=== PATIENT | female | born 1980 | race African-American/Black ===

== ENCOUNTER 2017-08-11 22:15 | Inpatient (IN) | payer OTHER ==
--- NOTE | 2017-08-11 22:34 | PDOC ---
Rapid Medical Evaluation Time Seen by Provider: 08/11/17 22:29 Medical Evaluation: Allergies Allergy/AdvReac Type Severity Reaction Status Date / Time No Known Allergies Allergy Verified 07/22/13 18:46 08/11/17 22:31 I have performed a brief in-person evaluation of this patient. The patient presents with a chief complaint of:36 yo c/o upper abd pain x3d w/o f/c, n/v/d LMP: 08/01/2017 Pertinent physical exam findings: L/S ctab Abd soft, pain to epigastric I have ordered the following: cbc/ cmp/amylase/lipase, ua, upreg The patient will proceed to the ED for further evaluation.
[2017-08-11 22:59] LABS: URINE APPEARANCE SLCLOUDY; URINE BILIRUBIN NEGATIVE (NEGATIVE); URINE BLOOD NEGATIVE (NEGATIVE); URINE COLOR YELLOW; URINE GLUCOSE (UA) 3+ (NEGATIVE); URINE KETONE TRACE (NEGATIVE); URINE NITRITE NEGATIVE (NEGATIVE); URINE UROBILINOGEN NEGATIVE mg/dL (0.2-1.0)
[2017-08-11 23:00] LABS: URINE PROTEIN 3+ (NEGATIVE)
[2017-08-11 23:02] LABS: URINE HYALINE CAST 2 /lpf; URINE MUCUS RARE; URINE RBC 7; URINE WBC 4
--- NOTE | 2017-08-11 23:54 | PDOC ---
History of Present Illness - General Chief Complaint: Pain Stated Complaint: STOMACH PAIN Time Seen by Provider: 08/11/17 22:29 - History of Present Illness Initial Comments: 08/11/17 23:50 CHIEF COMPLAINT: abd pain HISTORY OF PRESENT ILLNESS: 36 yo F morbidly obese F presents to ED with abdominal pain x 3 days. Patient denies fever, nausea, vomiting, diarrhea. She denies any dysuria, hematuria, or urinary frequency. Last bowel movement was today and "was normal." LMP was "last week, just ended two days ago." PAST MEDICAL HISTORY: Denies past medical history FAMILY HISTORY: Denies SOCIAL HISTORY: Denies tobacco, alcohol, illicit drug use. SURGICAL HISTORY: Denies ALLERGIES: No known drug allergies REVIEW OF SYSTEMS General/Constitutional: Denies fever or chills. Denies weakness, weight change. HEENT: Denies change in vision. Denies ear pain or discharge. Denies sore throat. Cardiovascular: Denies chest pain or shortness of breath. Respiratory: Denies cough, wheezing, or hemoptysis. Gastrointestinal: Abdominal pain "on the sides, and goes down the middle, like a cramping pain." Denies nausea, vomiting, diarrhea or constipation. Denies rectal bleeding. Genitourinary: Denies dysuria, frequency, or change in urination. Musculoskeletal: Denies joint or muscle swelling or pain. Denies neck or back pain. Skin and breasts: Denies rash or easy bruising. PHYSICAL EXAM General Appearance: Well-appearing, appropriately dressed. No apparent distress. HEENT: EOMI, PERRLA. No conjunctival pallor. No photophobia, scleral icterus. Respiratory/Chest: Lungs CTAB. Cardiovascular: RRR. S1, S2. Gastrointestinal/Abdominal: RUQ and epigastric tenderness. Normal bowel sounds. Abdomen soft, non-distended. No tenderness or rebound tenderness. No organomegaly, pulsatile mass, guarding, hernia, hepatomegaly, splenomegaly. Musculoskeletal/Extremities: Normal inspection. FROM of all extremities, normal capillary refill. Pelvis Stable. No CVA tenderness. No tenderness to extremities, pedal edema, swelling, erythema or deformity. Integumentary: Appropriate color, dry, warm. No cyanosis, erythema, jaundice or rash Neurologic: hospice administrator II-XII intact. Fully oriented, alert. Appropriate mood/affect. Motor strength 5/5. No appreciable EOM palsy, facial droop or sensory deficit. 08/12/17 00:41 Past History - Past Medical History Allergies/Adverse Reactions: Allergies Allergy/AdvReac Type Severity Reaction Status Date / Time No Known Allergies Allergy Verified 08/12/17 04:04 Home Medications: Ambulatory Orders NK [No Known Home Medication] 08/12/17 - Immunization History Td Vaccination: Yes Immunization Up to Date: Yes - Suicide/Smoking/Psychosocial Hx Smoking Status: Yes Smoking History: Current some day smoker Years of Tobacco Use: 5 Have you smoked in the past 12 months: Yes Number of Cigarettes Smoked Daily: 10 Cigars Per Day: 0 Information on smoking cessation initiated: No Hx Alcohol Use: No Drug/Substance Use Hx: No *Physical Exam - Vital Signs Last Vital Signs Temp Pulse Resp BP Pulse Ox 98.4 F 90 20 140/80 99 08/11/17 22:34 08/11/17 22:34 08/11/17 22:34 08/11/17 22:34 08/11/17 22:34 ED Treatment Course - LABORATORY CBC & Chemistry Diagram: 08/12/17 07:00 08/12/17 07:00 - ADDITIONAL ORDERS Additional order review: Laboratory Results 08/11/17 22:50 Urine Color Yellow Urine Appearance Slcloudy Urine pH 7.0 Ur Specific [place] 1.029 Urine Protein 3+ H Urine Glucose (UA) 3+ H Urine Ketones Trace H Urine Blood Negative Urine Nitrite Negative Urine Bilirubin Negative Urine Urobilinogen Negative Urine WBC (Auto) 4 Urine RBC (Auto) 7 Ur Epithelial Cells Few Hyaline Casts 2 Urine Mucus Rare Urine HCG, Qual Negative Medical Decision Making - Medical Decision Making 08/12/17 00:45 36 yo F morbidly obese F presents to ED with abdominal pain x 3 days. -CBC, CMP, lipase/amylase -UA, UCx, Upreg 08/12/17 03:04 Lipase 1400s, CT ordered eval pancreatitis. CT results: Possible very mild pancreatitis. Read by: Rob Robles MD. Patient's PCP is Gregory Hdez. Discussed case with attending MD Wright, will admit to hospitalist Case discussed with admitting hospitalist MD Hanson and resident MD Tolentino, who accept patient to inpatient services. *DC/Admit/Observation/Transfer Diagnosis at time of Disposition: Pancreatitis Qualifiers: Chronicity: acute Pancreatitis type: unspecified pancreatitis type Acute pancreatitis complication: unspecified Qualified Code(s): K85.90 - Acute pancreatitis without necrosis or infection, unspecified - Discharge Dispostion Admit: Yes - Referrals - Patient Instructions - Post Discharge Activity
[2017-08-12 00:53] LABS: BASOPHIL 1.1 % (0-2.0); EOSINOPHIL 1.3 % (0-4.5); MCHC 33.4 g/dl (32.0-36.0); MEAN CELL VOLUME 86.8 fl (80-96); MEAN PLT VOLUME 9.7 fl (7.5-11.1); NEUTROPHILS 57.9 % (42.8-82.8); PLATELET COUNT 266 K/MM3 (134-434); WHITE BLOOD COUNT 8.8 K/mm3 (4.0-10.0)
[2017-08-12 01:24] LABS: ALBUMIN 3.1 g/dl (3.4-5.0); AMYLASE 133 U/L (25-115); ANION GAP 11 (8-16); CALCIUM 8.7 mg/dL (8.5-10.1); CO2 25 mmol/L (21-32); CREATININE 0.7 mg/dL (0.55-1.02); GLUCOSE,RANDOM 281 mg/dL (74-106); SGOT/AST 6 U/L (15-37); SGPT/ALT 20 U/L (12-78)
[2017-08-12 01:26] LABS: ALK PHOS 140 U/L (45-117); BILIRUBIN,TOTAL 0.5 mg/dL (0.2-1.0)
[2017-08-12] MEDS ORDERED: KETOROLAC TROMETHAMINE 30 MG/1 ML VIAL IVPUSH ONE (01:28)
[2017-08-12] MEDS ORDERED: SODIUM CHLORIDE 0.9% 1000 ML INFUS.BAG IV ONE (01:43)
--- NOTE | 2017-08-12 03:39 | PN ---
Teaching Attending Note Name of Resident: Lauren Tolentino ATTENDING PHYSICIAN STATEMENT I saw and evaluated the patient. I reviewed the resident's note and discussed the case with the resident. I agree with the resident's findings and plan as documented. SUBJECTIVE: 36 Morbidly obese F with no pmhx. who presents with 3 days of abdominal pain. Pain is ksenia-epigastric. No nausea, vomiting, or diarrhea. No chest pain or pressure. States she does not drink etoh. OBJECTIVE: Physical: VS: Vital Signs Period Temp Pulse Resp BP Sys/[place] Pulse Ox Last 24 Hr 98.4 F 90 20 140/80 99 GEN:NAD, resting in bed, able to speak full sentences HEENT: NCAT, PERRL, throat without erythema or exudates CARD: RRR S1, S2 RESP: CTAB ABD: BSx4, NTD to palpation EXT: - C/C/E CBC,CMP WBC 8.8 K/mm3 (4.0-10.0) 08/12/17 00:33 RBC 5.39 M/mm3 (3.60-5.2) H 08/12/17 00:33 Hgb 15.6 GM/dL (10.7-15.3) H 08/12/17 00:33 Hct 46.8 % (32.4-45.2) H 08/12/17 00:33 MCV 86.8 fl (80-96) 08/12/17 00:33 MCH 29.0 pg (25.7-33.7) 08/12/17 00:33 MCHC 33.4 g/dl (32.0-36.0) 08/12/17 00:33 RDW 14.0 % (11.6-15.6) 08/12/17 00:33 Plt Count 266 K/MM3 (134-434) 08/12/17 00:33 MPV 9.7 fl (7.5-11.1) 08/12/17 00:33 Neutrophils % 57.9 % (42.8-82.8) 08/12/17 00:33 Lymphocytes % 32.9 % (8-40) 08/12/17 00:33 Monocytes % 6.8 % (3.8-10.2) 08/12/17 00:33 Eosinophils % 1.3 % (0-4.5) 08/12/17 00:33 Basophils % 1.1 % (0-2.0) 08/12/17 00:33 Sodium 135 mmol/L (136-145) L 08/12/17 00:33 Potassium 4.4 mmol/L (3.5-5.1) 08/12/17 00:33 Chloride 99 mmol/L (98-107) 08/12/17 00:33 Carbon Dioxide 25 mmol/L (21-32) 08/12/17 00:33 Anion Gap 11 (8-16) 08/12/17 00:33 BUN 7 mg/dL (7-18) 08/12/17 00:33 Creatinine 0.7 mg/dL (0.55-1.02) 08/12/17 00:33 Creat Clearance w eGFR > 60 (>60) 08/12/17 00:33 Random Glucose 281 mg/dL (74-106) H 08/12/17 00:33 Calcium 8.7 mg/dL (8.5-10.1) 08/12/17 00:33 Total Bilirubin 0.5 mg/dL (0.2-1.0) 08/12/17 00:33 AST 6 U/L (15-37) L 08/12/17 00:33 ALT 20 U/L (12-78) 08/12/17 00:33 Alkaline Phosphatase 140 U/L (45-117) H 08/12/17 00:33 Total Protein 7.0 g/dl (6.4-8.2) 08/12/17 00:33 Albumin 3.1 g/dl (3.4-5.0) L 08/12/17 00:33 Total Amylase 133 U/L (25-115) H 08/12/17 00:33 Lipase 1419 U/L (73-393) H 08/12/17 00:33 CXR- Pending EKG- Pending CT ABDOMEN- Mild Pancreatitis ASSESSMENT AND PLAN: 36 Morbidly obese female with no pmhx presents with abdominal pain, found to have acute pancreatitis 1.) Acute Pancreatitis - NPO - IVF - Pain control - Lipid Panel 2.) Hyperglycemia - A1c - RAISS 3.) Dvt Ppx - Heparin [address] in Med-Sx
[2017-08-12] MEDS ORDERED: KETOROLAC TROMETHAMINE 30 MG/1 ML VIAL IVPUSH PRN (03:45)
--- NOTE | 2017-08-12 03:49 | HP ---
CHIEF COMPLAINT: "my stomach hurts" PCP: Dr Gregory Hdez HISTORY OF PRESENT ILLNESS: This is a 36 yo morbidly obese F with no PMH, who presents due to abdominal pain x 3d. Pain is new, started suddenly unrelated to meals, is midline, dull, constant, nonradiating, /, w/o aggravating or alleviating factors. She lost her appetite but denies f/c, n/v, diarrhea, constipation. Last normal BM was yesterday. She reports uri symptoms (cough) before the onset of this pain, for which she took dayquill. She deneis any new medication use, drug use, alcohol consumption, personal history of gall stones or routine abd pain after emals. Her mother had cholelithiasis. In ED pain almost entirely resolves after analgesia. ER course was notable for: (1) labs (2) cxr, abd ct (3) ivf, toradol Recent Travel: denies PAST MEDICAL HISTORY: as above PAST SURGICAL HISTORY: none Social History: lives at home Smoking:pack/day Alcohol:denies Drugs: denies Family History: mother cholelithiasis Allergies No Known Allergies Allergy (Verified 07/22/13 18:46) HOME MEDICATIONS: REVIEW OF SYSTEMS CONSTITUTIONAL: Absent: fever, chills, diaphoresis, generalized weakness HEENT: Absent: rhinorrhea, nasal congestion, throat pain CARDIOVASCULAR: Absent: chest pain, syncope, palpitations, irregular heart rate, lightheadedness , peripheral edema RESPIRATORY: Absent: cough, shortness of breath, dyspnea with exertion, orthopnea, wheezing, stridor, hemoptysis GASTROINTESTINAL: Absent: abdominal distension, nausea, vomiting, diarrhea, constipation, melena, hematochezia GENITOURINARY: Absent: dysuria MUSCULOSKELETAL: Absent: back pain, neck pain SKIN: Absent: rash, itching, pallor HEMATOLOGIC/IMMUNOLOGIC: Absent: easy bleeding, easy bruising, lymphadenopathy, frequent infections ENDOCRINE: Absent: unexplained weight gain, unexplained weight loss NEUROLOGIC: Absent: headache, focal weakness or paresthesias PSYCHIATRIC: Absent: anxiety, depression PHYSICAL EXAMINATION Vital Signs - 24 hr 08/11/17 22:34 Temperature 98.4 F Pulse Rate 90 Respiratory 20 Rate Blood Pressure 140/80 O2 Sat by Pulse 99 Oximetry (%) GENERAL: Awake, alert, and fully oriented, in no acute distress. HEAD: Normal with no signs of trauma. EYES: Pupils equal, round and reactive to light, extraocular movements intact, sclera anicteric, conjunctiva clear. No lid lag. EARS, NOSE, THROAT: Moist mucous membranes. NECK: supple LUNGS: Breath sounds equal, clear to auscultation bilaterally. HEART: Regular rate and rhythm, normal S1 and S2 ABDOMEN: Soft, obese, mildly tender upper quadrants, not distended, normoactive bowel sounds, no guarding, no rebound, no masses. MUSCULOSKELETAL: No CVA tenderness. UPPER EXTREMITIES: 2+ pulses, warm, well-perfused. No peripheral edema. LOWER EXTREMITIES: 2+ pulses, warm, well-perfused. No calf tenderness. No peripheral edema. NEUROLOGICAL: Cranial nerves II-XII grossly intact. Normal speech. PSYCHIATRIC: Cooperative. Good eye contact. Appropriate mood and affect. SKIN: Warm, dry Laboratory Results - last 24 hr 08/11/17 08/12/17 08/12/17 22:50 00:33 00:33 WBC 8.8 RBC 5.39 H Hgb 15.6 H Hct 46.8 H MCV 86.8 MCH 29.0 MCHC 33.4 RDW 14.0 Plt Count 266 MPV 9.7 Neutrophils % 57.9 Lymphocytes % 32.9 Monocytes % 6.8 Eosinophils % 1.3 Basophils % 1.1 Sodium 135 L Potassium 4.4 Chloride 99 Carbon Dioxide 25 Anion Gap 11 BUN 7 Creatinine 0.7 Creat Clearance w eGFR > 60 Random Glucose 281 H Calcium 8.7 Total Bilirubin 0.5 AST 6 L ALT 20 Alkaline Phosphatase 140 H Total Protein 7.0 Albumin 3.1 L Total Amylase 133 H Lipase 1419 H Urine Color Yellow Urine Appearance Slcloudy Urine pH 7.0 Ur Specific [place] 1.029 Urine Protein 3+ H Urine Glucose (UA) 3+ H Urine Ketones Trace H Urine Blood Negative Urine Nitrite Negative Urine Bilirubin Negative Urine Urobilinogen Negative Urine WBC (Auto) 4 Urine RBC (Auto) 7 Ur Epithelial Cells Few Hyaline Casts 2 Urine Mucus Rare Urine HCG, Qual Negative ASSESSMENT/PLAN: This is a 36 yo morbidly obese F with no PMH, who presents due to abdominal pain x 3d. Acute panceratitits -CT abdoment no GB or CBD annormality, possible mild pancreatitis -CXR clear -[place] about 1, mild -unclear etiology -administer LR and toradol -BGM, ISS for reactive hyperglycemia -GI consult -early feeding Morbid obesity -diet and exercise counseling Smoking -cessation counseling Dispo: adm med [place] Problem List - Problem (1) Morbid obesity Code(s): E66.01 - MORBID (SEVERE) OBESITY DUE TO EXCESS CALORIES (2) Smoker Code(s): F17.200 - NICOTINE DEPENDENCE, UNSPECIFIED, UNCOMPLICATED (3) Pancreatitis Code(s): K85.90 - ACUTE PANCREATITIS WITHOUT NECROSIS OR INFECTION, UNSP Qualifiers: Chronicity: acute Pancreatitis type: unspecified pancreatitis type Acute pancreatitis complication: unspecified Qualified Code(s): K85.90 - Acute pancreatitis without necrosis or infection, unspecified Visit type - Emergency Visit Emergency Visit: Yes ED Registration Date: 08/12/17 Care time: The patient presented to the Emergency Department on the above date and was hospitalized for further evaluation of their emergent condition. - New Patient This patient is new to me today: Yes Date on this admission: 08/12/17 - Critical Care Critical Care patient: No
[2017-08-12] MEDS: LACTATED RINGERS SOLUTION 1,000 ML/1,000 ML INFUS.BAG IV SCH ×2 (04:02→22:23)
[2017-08-12 04:20] LABS: CHOLESTEROL 264 mg/dL (50-200)
--- NOTE | 2017-08-12 04:34 | HP ---
CHIEF COMPLAINT: abdominal pain PCP: Gregory Hdez HISTORY OF PRESENT ILLNESS: 36F w/ hx of morbid obesity presenting with 3 days of abdominal pain. She states that the pain is midline and worst in the epigastric region, 10/10 in severity, sharp in quality, radiates to sides, mildly improved with zain seltzer , and constant. She denies ever having abdominal pain like this before, denies alcohol consumption, family hx of any gallbladder, pancreas, or liver diseases, and any daily medication use. She denies fevers, chills, chest pain, SOB, n/v/d/ c, dysuria, urinary frequency, and urgency. Pt reports that her abdominal pain was preceded by several days of a cold characterized by malaise and cough for which she took dayquil with relief of symptoms. She states that she last saw her PCP (Dr. Hdez) one year ago, and she was completely healthy. ER course was notable for: (1) lipase and amylase levels (2) fluids (3) pain control Recent Travel: PAST MEDICAL HISTORY: morbid obesity PAST SURGICAL HISTORY: denies Social History: Smokin pack per 1.5 days x 10 years Alcohol: denies Drugs: denies Family History: mom- kidney and heart disease Allergies No Known Allergies Allergy (Verified 08/12/17 04:04) HOME MEDICATIONS: Home Medications Medication Instructions Recorded NK [No Known Home Medication] 08/12/17 REVIEW OF SYSTEMS CONSTITUTIONAL: Absent: fever, chills, diaphoresis, generalized weakness, loss of appetite, weight change Present: malaise HEENT: Absent: rhinorrhea, nasal congestion, throat pain, throat swelling, difficulty swallowing, mouth swelling, ear pain, eye pain, visual changes CARDIOVASCULAR: Absent: chest pain, syncope, palpitations, irregular heart rate, lightheadedness , peripheral edema RESPIRATORY: Absent: shortness of breath, dyspnea with exertion, orthopnea, wheezing, stridor , hemoptysis Present: cough GASTROINTESTINAL: Absent: abdominal distension, nausea, vomiting, diarrhea, constipation, melena, hematochezia Present: abdominal pain GENITOURINARY: Absent: dysuria, frequency, urgency, hesitancy, hematuria, flank pain, genital pain MUSCULOSKELETAL: Absent: myalgia, arthralgia, joint swelling, back pain, neck pain SKIN: Absent: rash, itching, pallor HEMATOLOGIC/IMMUNOLOGIC: Absent: easy bleeding, easy bruising, lymphadenopathy, frequent infections ENDOCRINE: Absent: unexplained weight gain, unexplained weight loss, heat intolerance, cold intolerance NEUROLOGIC: Absent: headache, focal weakness or paresthesias, dizziness, unsteady gait, seizure, mental status changes, bladder or bowel incontinence PSYCHIATRIC: Absent: anxiety, depression, suicidal or homicidal ideation, hallucinations. PHYSICAL EXAMINATION Vital Signs - 24 hr 08/11/17 22:34 Temperature 98.4 F Pulse Rate 90 Respiratory 20 Rate Blood Pressure 140/80 O2 Sat by Pulse 99 Oximetry (%) GENERAL: morbidly obese middle aged lady, awake, alert, and fully oriented, in no acute distress. HEAD: Normal with no signs of trauma. EYES: Pupils equal, round and reactive to light, extraocular movements intact, sclera anicteric, conjunctiva clear. No lid lag. EARS, NOSE, THROAT: Ears normal, nares patent, oropharynx clear without exudates. Moist mucous membranes. NECK: Normal range of motion, supple without lymphadenopathy, JVD, or masses. LUNGS: Breath sounds equal, clear to auscultation bilaterally. No wheezes, and no crackles. No accessory muscle use. HEART: Regular rate and rhythm, normal S1 and S2 without murmur, rub or gallop. ABDOMEN: Soft, mildly tender in LUQ and epigastric regions, not distended, normoactive bowel sounds, no guarding, no rebound, no masses. No hepatomegaly or splenomegaly. MUSCULOSKELETAL: Normal range of motion at all joints. No bony deformities or tenderness. No CVA tenderness. UPPER EXTREMITIES: 2+ pulses, warm, well-perfused. No cyanosis. No clubbing. No peripheral edema. LOWER EXTREMITIES: 2+ pulses, warm, well-perfused. No calf tenderness. No peripheral edema. NEUROLOGICAL: Cranial nerves II-XII intact. Normal speech. Normal gait. PSYCHIATRIC: Cooperative. Good eye contact. Appropriate mood and affect. SKIN: Warm, dry, normal turgor, no rashes or lesions noted, normal capillary refill. Laboratory Results - last 24 hr 08/11/17 08/12/17 08/12/17 22:50 00:33 00:33 WBC 8.8 RBC 5.39 H Hgb 15.6 H Hct 46.8 H MCV 86.8 MCH 29.0 MCHC 33.4 RDW 14.0 Plt Count 266 MPV 9.7 Neutrophils % 57.9 Lymphocytes % 32.9 Monocytes % 6.8 Eosinophils % 1.3 Basophils % 1.1 Sodium 135 L Potassium 4.4 Chloride 99 Carbon Dioxide 25 Anion Gap 11 BUN 7 Creatinine 0.7 Creat Clearance w eGFR > 60 Random Glucose 281 H Calcium 8.7 Total Bilirubin 0.5 AST 6 L ALT 20 Alkaline Phosphatase 140 H Total Protein 7.0 Albumin 3.1 L Total Amylase 133 H Lipase 1419 H Urine Color Yellow Urine Appearance Slcloudy Urine pH 7.0 Ur Specific [place] 1.029 Urine Protein 3+ H Urine Glucose (UA) 3+ H Urine Ketones Trace H Urine Blood Negative Urine Nitrite Negative Urine Bilirubin Negative Urine Urobilinogen Negative Urine WBC (Auto) 4 Urine RBC (Auto) 7 Ur Epithelial Cells Few Hyaline Casts 2 Urine Mucus Rare Urine HCG, Qual Negative CT abdomen: Imaging external relations director findings There may be minimal inflammation adjacent to pancreatic head, suggesting mild pancreatitis. No secondary complications. Normal liver and gallbladder. ASSESSMENT/PLAN: 36F w/ hx of morbid obesity presenting with acute epigastric abdominal pain, found to have exam notable for epigastric and LUQ tenderness, elevated lipase and amylase, and CT findings suggestive of mild pancreatitis. #epigastric abdominal pain -2/2 acute pancreatitis -lipase of 1419, amylase of 133 -CT abdomen: There may be minimal inflammation adjacent to pancreatic head, suggesting mild pancreatitis. No secondary complications. Normal liver and gallbladder. -etiology unclear at this point. no gallstones or gallbladder changes found on CT. calcium normal. no alcohol consumption. no family hx. no regular medication use. triglycerides mildly increased at 211, not high enough to cause pancreatitis. -NPO, fluids with LR @ 150cc/hr, pain control with toradol -f/u EKG and CXR #elevated ALP -ALP of 140 -possibly 2/2 pancreatitis vs. gallstone vs. low vitamin D -trend #HLD -LDL of 197 -start statin once tolerating po #morbid obesity -farmworker poultry consulted, f/u recs #hyperglycemia -glucose of 281 on BMP, UA with 3+ glucose, protein, and trace ketones -f/u a1c -ISS, BGM BIDAC #elevated BP -BP of 140/80 -no prior dx of HTN -monitor -f/u outpt #FEN/ppx -LR -electrolytes wnl -NPO for now -no GI ppx -SCDs and lovenox #Dispo- admit to med-surg -Keny Garcia MD PGY1 Visit type - Emergency Visit Emergency Visit: Yes ED Registration Date: 08/12/17 Care time: The patient presented to the Emergency Department on the above date and was hospitalized for further evaluation of their emergent condition. - New Patient This patient is new to me today: Yes Date on this admission: 08/12/17 - Critical Care Critical Care patient: No
[2017-08-12 04:57] VITALS: BMI 41.6
[2017-08-12] MEDS ORDERED: INSULIN (NOVOLOG) ASPART 100 UNITS/ML 10ML VIAL ONE (05:45)
[2017-08-12] MEDS: INSULIN SLIDING SCALE (NOVOLOG) 1 VIAL SQ SCH ×4 (05:46→21:27)
[2017-08-12 08:22] LABS: BASOPHIL 0.6 % (0-2.0); EOSINOPHIL 1.8 % (0-4.5); MCH 28.9 pg (25.7-33.7); MCHC 32.8 g/dl (32.0-36.0); MEAN CELL VOLUME 88.3 fl (80-96); MEAN PLT VOLUME 9.9 fl (7.5-11.1); NEUTROPHILS 54.2 % (42.8-82.8); PLATELET COUNT 278 K/MM3 (134-434); WHITE BLOOD COUNT 8.2 K/mm3 (4.0-10.0)
[2017-08-12] MEDS: ENOXAPARIN NA (PORCINE) 40 MG/0.4 ML DISP.SYRIN SQ SCH (09:41)
[2017-08-12 09:48] LABS: ALBUMIN 3.3 g/dl (3.4-5.0); ANION GAP 11 (8-16); CALCIUM 8.9 mg/dL (8.5-10.1); CO2 27 mmol/L (21-32); CREATININE 0.8 mg/dL (0.55-1.02); GLUCOSE,RANDOM 217 mg/dL (74-106); SGOT/AST 9 U/L (15-37); SGPT/ALT 21 U/L (12-78)
[2017-08-12 09:50] LABS: ALK PHOS 146 U/L (45-117); BILIRUBIN,TOTAL 0.4 mg/dL (0.2-1.0); TOT PROT 7.2 g/dl (6.4-8.2)
--- NOTE | 2017-08-12 10:49 | EKG ---
Test Reason : Blood Pressure : / mmHG Vent. Rate : 075 BPM Atrial Rate : 075 BPM P-R Int : 138 ms QRS Dur : 070 ms QT Int : 394 ms P-R-T Axes : 038 045 050 degrees QTc Int : 439 ms NORMAL SINUS RHYTHM BASELINE ARTIFACT POSSIBLE LEFT ATRIAL ENLARGEMENT NONSPECIFIC ST ABNORMALITY ABNORMAL ECG NO PREVIOUS ECGS AVAILABLE REPEAT EKG IF CLINICALLY INDICATED Confirmed by RAND THOMAS MD ([id number]) on 08/12/2017 10:48:40 AM Referred By: Confirmed By:RAND THOMAS MD
[2017-08-12 12:21] LABS: URINE LEUK ESTERASE Negative (NEGATIVE)
--- NOTE | 2017-08-12 14:48 | PN ---
Teaching Attending Note Name of Resident: Fredy Sin ATTENDING PHYSICIAN STATEMENT I saw and evaluated the patient. I reviewed the resident's note and discussed the case with the resident. I agree with the resident's findings and plan as documented. SUBJECTIVE:states pain has resolved. requesting to eat. denies any epiosodes in the past, pain on eating fried/fatty foods. Denies CP, SOB, fever, chills, N/V/C /D OBJECTIVE: Last Vital Signs Temp Pulse Resp BP Pulse Ox 98.2 F 66 20 145/89 100 08/12/17 08:00 08/12/17 08:00 08/12/17 08:00 08/12/17 08:00 08/12/17 05:04 General NAD CV S1 S2 RRR no murmur/rub/gallop Lungs CTA B/L no wheezing/rales/rhonchi Abdomen soft NT/ND neg chandler sign no rebound/guarding obese ASSESSMENT AND PLAN: 36yo F wtih PMH obesity presented to the ER with abdominal pain x3 days 1. Acute pancreatitis- concern for gallstone induced. U/s showing dilated CBD 11mm. will advance diet to clear liquid. check MRCP, consider Surg eval to see if cholecystectomy is required this admission 2. New onset DM- A1c 11.3. will need insulin. start levemir 5 untis tonight as will only be on liquids. titrate up to optimize sugars. BGM, iss. dietary eval. injection teaching by RN 3. elevated BP- may be due to pain. if remains elevated will start low dose acei. goal SBP <130 4. Morbid obesity- BMI 41.6. bariatric referral as outpatient 5. DVT ppx- lovenox
--- NOTE | 2017-08-12 15:09 | PN ---
Physical Exam: SUBJECTIVE: Patient seen and examined at bedside. This is a 36 year old female with a past medical history significant for morbid obesity presenting for a 3 day history of epigastric abdominal pain that radiates to her sides. Denies nausea, vomiting , diarrhea. Clinical picture and CT suggestive of acute pancreatitis. Patient was started on LR fluids. Patient was discovered to have diabetes mellitus. Currently patient has no complaints (chest pain, abdominal pain, shortness of breath). OBJECTIVE: Vital Signs Period Temp Pulse Resp BP Sys/[place] Pulse Ox Last 24 Hr 97.9 F-98.4 F 66-90 15-20 128-151/68-89 98-100 GENERAL: The patient is awake, alert, and fully oriented, in no acute distress. HEAD: Normal with no signs of trauma. EYES: PERRL, extraocular movements intact, sclera anicteric, conjunctiva clear. No ptosis. ENT: Ears normal, nares patent, oropharynx clear without exudates, moist mucous membranes. NECK: Trachea midline, full range of motion, supple. LUNGS: Breath sounds equal, clear to auscultation bilaterally, no wheezes, no crackles, no accessory muscle use. HEART: Regular rate and rhythm, S1, S2 without murmur, rub or gallop. ABDOMEN: Soft, obese, nontender, nondistended, normoactive bowel sounds, no guarding, no rebound, no hepatosplenomegaly, no masses. EXTREMITIES: 2+ pulses, warm, well-perfused, no edema. NEUROLOGICAL: Cranial nerves II through XII grossly intact. Normal speech, gait not observed. PSYCH: Normal mood, normal affect. SKIN: Warm, dry, normal turgor, no rashes or lesions noted Laboratory Results - last 24 hr 08/11/17 08/12/17 08/12/17 22:50 00:33 00:33 WBC 8.8 RBC 5.39 H Hgb 15.6 H Hct 46.8 H MCV 86.8 MCH 29.0 MCHC 33.4 RDW 14.0 Plt Count 266 MPV 9.7 Neutrophils % 57.9 Lymphocytes % 32.9 Monocytes % 6.8 Eosinophils % 1.3 Basophils % 1.1 Sodium 135 L Potassium 4.4 Chloride 99 Carbon Dioxide 25 Anion Gap 11 BUN 7 Creatinine 0.7 Creat Clearance w eGFR > 60 POC Glucometer Random Glucose 281 H Hemoglobin A1c % Calcium 8.7 Total Bilirubin 0.5 AST 6 L ALT 20 Alkaline Phosphatase 140 H LD Total Total Protein 7.0 Albumin 3.1 L Triglycerides Cholesterol Total LDL Cholesterol HDL Cholesterol Total Amylase 133 H Lipase 1419 H Urine Color Yellow Urine Appearance Slcloudy Urine pH 7.0 Ur Specific [place] 1.029 Urine Protein 3+ H Urine Glucose (UA) 3+ H Urine Ketones Trace H Urine Blood Negative Urine Nitrite Negative Urine Bilirubin Negative Urine Urobilinogen Negative Ur Leukocyte Esterase Negative Urine WBC (Auto) 4 Urine RBC (Auto) 7 Ur Epithelial Cells Few Hyaline Casts 2 Urine Mucus Rare Urine HCG, Qual Negative 08/12/17 08/12/17 08/12/17 00:40 00:40 05:40 WBC RBC Hgb Hct MCV MCH MCHC RDW Plt Count MPV Neutrophils % Lymphocytes % Monocytes % Eosinophils % Basophils % Sodium Potassium Chloride Carbon Dioxide Anion Gap BUN Creatinine Creat Clearance w eGFR POC Glucometer 256 Random Glucose Hemoglobin A1c % Calcium Total Bilirubin AST ALT Alkaline Phosphatase LD Total 129 Total Protein Albumin Triglycerides 211 H Cholesterol 264 H Total LDL Cholesterol 197 H HDL Cholesterol 33 L Total Amylase Lipase Urine Color Urine Appearance Urine pH Ur Specific [place] Urine Protein Urine Glucose (UA) Urine Ketones Urine Blood Urine Nitrite Urine Bilirubin Urine Urobilinogen Ur Leukocyte Esterase Urine WBC (Auto) Urine RBC (Auto) Ur Epithelial Cells Hyaline Casts Urine Mucus Urine HCG, Qual 08/12/17 08/12/17 08/12/17 07:00 07:00 10:05 WBC 8.2 RBC 5.39 H Hgb 15.6 H Hct 47.6 H MCV 88.3 MCH 28.9 MCHC 32.8 RDW 14.0 Plt Count 278 MPV 9.9 Neutrophils % 54.2 Lymphocytes % 37.2 Monocytes % 6.2 Eosinophils % 1.8 Basophils % 0.6 Sodium 137 Potassium 4.3 Chloride 99 Carbon Dioxide 27 Anion Gap 11 BUN 10 D Creatinine 0.8 Creat Clearance w eGFR > 60 POC Glucometer Random Glucose 217 H D Hemoglobin A1c % 11.3 H Calcium 8.9 Total Bilirubin 0.4 AST 9 L D ALT 21 Alkaline Phosphatase 146 H LD Total Total Protein 7.2 Albumin 3.3 L Triglycerides Cholesterol Total LDL Cholesterol HDL Cholesterol Total Amylase Lipase Urine Color Urine Appearance Urine pH Ur Specific [place] Urine Protein Urine Glucose (UA) Urine Ketones Urine Blood Urine Nitrite Urine Bilirubin Urine Urobilinogen Ur Leukocyte Esterase Urine WBC (Auto) Urine RBC (Auto) Ur Epithelial Cells Hyaline Casts Urine Mucus Urine HCG, Qual Active Medications Generic Name Dose Route Start Last Admin Trade Name Freq PRN Reason Stop Dose Admin Enoxaparin Sodium 40 mg 08/12/17 10:00 08/12/17 09:41 Lovenox - SQ 40 mg DAILY KAYODE Administration Lactated Ringer's 1,000 ml in 1,000 mls @ 150 mls/hr 08/12/17 04:00 08/12/17 04:02 Lactated Ringers Solution IV 08/14/17 10:39 150 mls/hr ASDIR KAYODE Administration Insulin Aspart 1 vial 08/12/17 16:30 Novolog Vial Sliding Scale - SQ ACHS KAYODE Protocol Insulin Detemir 5 units 08/12/17 14:45 Levemir Vial SQ HS KAYODE Ketorolac Tromethamine 30 mg 08/12/17 03:45 Toradol Injection - IVPUSH 08/17/17 03:44 Q8H-IV PRN PAIN Lorazepam 1 mg 08/12/17 14:51 Ativan Injection - IVPUSH 08/12/17 14:[address] abdomen: minimal inflammation adjacent to pancreatic head, normal liver and gallbladder US abdomen: common bile duct measuring 11mm; hepatomegaly and hepatic steatosis ASSESSMENT/PLAN: 36 year old female with a past medical history of morbid obesity is admitted to the hospital for management of acute pancreatitis #Acute Pancreatitis: resolving -lipase on admission was 1419 -common bile duct dilation 11mm -f/u MRCP, 1mg ativan given for anxiety about the test -continue LR @ 150cc/hr -continue toradol 30mg Q8h IV for pain #Diabetes Mellitus: -A1C 11.3 -BG 281 this morning -Levemir 5 Units -insulin sliding scale #Hyperlipidemia -cholesterol 264 -followup full lipid panel -trigs 211, unlikely causing her pancreatitis #Morbid obesity -f/u dietary reccs, NPO for now #Hypertension -blood pressure 151/68 this morning -monitor vitals, no hx of prior hypertensive disease #FEN -Continue LR @ 150/hr -monitor creatitine, potassium, magnesium, phosphorous -NPO until after MRCP, then potentially advance diet #Prophylaxis -Lovenox 40mg subq #Disposition -continue to monitor on med-surg -patient is full code Visit type - Emergency Visit Emergency Visit: No - New Patient This patient is new to me today: Yes Date on this admission: 08/12/17 - Critical Care Critical Care patient: No
[2017-08-12] MEDS: INSULIN DETEMIR 100 UNITS/ML MDV SQ SCH ×2 (17:12→21:27)
[2017-08-12] MEDS ORDERED: LORazepam 2 MG/ML SDV VIAL IVPUSH ONE (17:30)
[2017-08-13] MEDS ORDERED: INSULIN (NOVOLOG) ASPART 100 UNITS/ML 10ML VIAL ONE ×4 (06:41→21:33)
[2017-08-13] MEDS: LACTATED RINGERS SOLUTION 1,000 ML/1,000 ML INFUS.BAG IV SCH (06:42)
[2017-08-13] MEDS: INSULIN SLIDING SCALE (NOVOLOG) 1 VIAL SQ SCH ×4 (06:42→22:03)
--- NOTE | 2017-08-13 07:52 | PN ---
Physical Exam: SUBJECTIVE: Patient seen and examined at bedside. Patient denies any abdominal pain, nausea, vomiting, diarrhea. Patient had MRCP last night. Tolerating clear liquid diet. OBJECTIVE: Vital Signs Period Temp Pulse Resp BP Sys/[place] Pulse Ox Last 24 Hr 98.2 F-98.2 F 66-78 18-20 133-145/78-89 100 GENERAL: The patient is awake, alert, and fully oriented, in no acute distress. HEAD: Normal with no signs of trauma. EYES: PERRL, extraocular movements intact, sclera anicteric, conjunctiva clear. No ptosis. ENT: Ears normal, nares patent, oropharynx clear without exudates, moist mucous membranes. NECK: Trachea midline, full range of motion, supple. LUNGS: Breath sounds equal, clear to auscultation bilaterally, no wheezes, no crackles, no accessory muscle use. HEART: Regular rate and rhythm, S1, S2 without murmur, rub or gallop. ABDOMEN: Soft, obese, nontender, nondistended, normoactive bowel sounds, no guarding, no rebound, no hepatosplenomegaly, no masses. EXTREMITIES: 2+ pulses, warm, well-perfused, no edema. NEUROLOGICAL: Cranial nerves II through XII grossly intact. Normal speech, gait not observed. PSYCH: Normal mood, normal affect. SKIN: Warm, dry, normal turgor, no rashes or lesions noted Laboratory Results - last 24 hr 08/11/17 08/12/17 08/12/17 22:50 07:00 07:00 WBC 8.2 RBC 5.39 H Hgb 15.6 H Hct 47.6 H MCV 88.3 MCH 28.9 MCHC 32.8 RDW 14.0 Plt Count 278 MPV 9.9 Neutrophils % 54.2 Lymphocytes % 37.2 Monocytes % 6.2 Eosinophils % 1.8 Basophils % 0.6 Sodium 137 Potassium 4.3 Chloride 99 Carbon Dioxide 27 Anion Gap 11 BUN 10 D Creatinine 0.8 Creat Clearance w eGFR > 60 POC Glucometer Random Glucose 217 H D Hemoglobin A1c % Calcium 8.9 Total Bilirubin 0.4 AST 9 L D ALT 21 Alkaline Phosphatase 146 H Total Protein 7.2 Albumin 3.3 L Ur Leukocyte Esterase Negative 08/12/17 08/12/17 08/12/17 10:05 17:10 21:26 WBC RBC Hgb Hct MCV MCH MCHC RDW Plt Count MPV Neutrophils % Lymphocytes % Monocytes % Eosinophils % Basophils % Sodium Potassium Chloride Carbon Dioxide Anion Gap BUN Creatinine Creat Clearance w eGFR POC Glucometer 160 188 Random Glucose Hemoglobin A1c % 11.3 H Calcium Total Bilirubin AST ALT Alkaline Phosphatase Total Protein Albumin Ur Leukocyte Esterase 08/13/17 06:37 WBC RBC Hgb Hct MCV MCH MCHC RDW Plt Count MPV Neutrophils % Lymphocytes % Monocytes % Eosinophils % Basophils % Sodium Potassium Chloride Carbon Dioxide Anion Gap BUN Creatinine Creat Clearance w eGFR POC Glucometer 207 Random Glucose Hemoglobin A1c % Calcium Total Bilirubin AST ALT Alkaline Phosphatase Total Protein Albumin Ur Leukocyte Esterase Active Medications Generic Name Dose Route Start Last Admin Trade Name Freq PRN Reason Stop Dose Admin Enoxaparin Sodium 40 mg 08/12/17 10:00 08/12/17 09:41 Lovenox - SQ 40 mg DAILY KAYODE Administration Lactated Ringer's 1,000 ml in 1,000 mls @ 150 mls/hr 08/12/17 04:00 08/13/17 06:42 Lactated Ringers Solution IV 08/14/17 10:39 150 mls/hr ASDIR KAYODE Administration Insulin Aspart 1 vial 08/12/17 16:30 08/13/17 06:42 Novolog Vial Sliding Scale - SQ 2 units ACHS KAYODE Administration Protocol Insulin Detemir 5 units 08/12/17 14:45 08/12/17 21:27 Levemir Vial SQ Not Given HS KAYODE Ketorolac Tromethamine 30 mg 08/12/17 03:45 Toradol Injection - IVPUSH 08/17/17 03:44 Q8H-IV PRN PAIN Imaging CT abdomen: minimal inflammation adjacent to pancreatic head, normal liver and gallbladder US abdomen: common bile duct measuring 11mm; hepatomegaly and hepatic steatosis MRCP: Tiny gallstone with no MRI evidence of cholecystitis. No choledocholithiasis seen. Mild fusiform dilatation of the CHD with upper normal CBD distal to the cystic duct insertion and no evidence of intrahepatic biliary ductal dilatation. This is likely within normal limits vs mild form of choledochal cyst type I. Correlation with clinical history and symptomatology as well as bilirubin level is needed. Fatty infiltration of the liver. Nonspecific segmental atrophy of the pancreatic neck with minimal dilatation of the pancreatic duct in the tail with no focal signal abnormality. Continued follow-up with MRI without and with IV gadolinium is suggested at a 6 month interval to exclude occult neoplasm. ASSESSMENT/PLAN: 36 year old female with a past medical history of morbid obesity is admitted to the hospital for management of acute pancreatitis #Acute Pancreatitis: resolving -lipase on admission was 1419 -common bile duct dilation 11mm -MRCP did not suspect cholecystitis or choledocholithiasis -DC lactated ringers -continue toradol 30mg Q8h IV for pain -tolerating solid food today #Diabetes Mellitus: -A1C 11.3 -Levemir 5 Units -insulin sliding scale #Hyperlipidemia -cholesterol 264 -followup full lipid panel -trigs 211 on admission, unlikely causing pancreatitis #Morbid obesity -f/u dietary recs -clear liquid diabetic diet #Hypertension -blood pressure 135/85 this morning -monitor vitals, no hx of prior hypertensive disease #FEN -D.C. lactated ringers -monitor creatitine, potassium, magnesium, phosphorous -Diabetic clear liquid diet #Prophylaxis -Lovenox 40mg subq #Disposition -continue to monitor on med-surg -can D/C in AM with recommendations for outpatient followup for GI -patient is full code Visit type - Emergency Visit Emergency Visit: No - New Patient This patient is new to me today: No - Critical Care Critical Care patient: No
[2017-08-13 07:57] LABS: MCH 29.2 pg (25.7-33.7); MCHC 33.2 g/dl (32.0-36.0); MEAN CELL VOLUME 87.9 fl (80-96); PLATELET COUNT 244 K/MM3 (134-434); RDW 13.7 % (11.6-15.6); WHITE BLOOD COUNT 5.8 K/mm3 (4.0-10.0)
[2017-08-13 08:17] LABS: ALBUMIN 2.8 g/dl (3.4-5.0); ALK PHOS 125 U/L (45-117); ANION GAP 9 (8-16); BILIRUBIN,TOTAL 0.6 mg/dL (0.2-1.0); CALCIUM 8.8 mg/dL (8.5-10.1); CO2 24 mmol/L (21-32); CREATININE 0.6 mg/dL (0.55-1.02); GLUCOSE,RANDOM 194 mg/dL (74-106); MAGNESIUM 1.6 mg/dL (1.8-2.4); PHOSPHOROUS 3.4 mg/dL (2.5-4.9); SGOT/AST 15 U/L (15-37); SGPT/ALT 23 U/L (12-78); TOT PROT 6.5 g/dl (6.4-8.2)
[2017-08-13 09:17] LABS: CHOLESTEROL 271 mg/dL (50-200)
[2017-08-13] MEDS: ENOXAPARIN NA (PORCINE) 40 MG/0.4 ML DISP.SYRIN SQ SCH (11:46)
--- NOTE | 2017-08-13 11:59 | PN ---
Teaching Attending Note Name of Resident: Fredy Sin ATTENDING PHYSICIAN STATEMENT I saw and evaluated the patient. I reviewed the resident's note and discussed the case with the resident. I agree with the resident's findings and plan as documented. SUBJECTIVE:asymtpomatic. requesting to eat. continues to deny biliary colic pain in the past. denies CP, SOB, fever, chills, N/V/C/D OBJECTIVE: Last Vital Signs Temp Pulse Resp BP Pulse Ox 98.2 F 76 18 133/85 100 08/13/17 06:11 08/13/17 06:11 08/13/17 06:11 08/13/17 06:11 08/12/17 21:00 General NAD Abdomen soft NT/ND neg chandler sign no rebound/guarding obese ASSESSMENT AND PLAN: 36yo F wtih PMH obesity presented to the ER with abdominal pain x3 days 1. Acute pancreatitis- concern for gallstone induced. U/s showing dilated CBD 11mm. MRCP done showing no acute cholecysitits or choledocholithasis. mild fusiform dilation of CHD and upper noraml of CBD distal to insertion iwth no intrahepatic biliary dilation. likely within normal limits vs choledocholithasis cyst type 1. also is seen atrophy of the pancreatic neck with minimal dilation of the pancreatic duct in the tail with no abnormality. in the setting of not expericing biliary colic on this presentation or the past and with normal bilirubin do not believe any further workup is required at this time. will advance diet as tolerated. will need GI follow up with repeat MRI with and without contrast to exclude occult neoplasm. 2. New onset DM- A1c 11.3. will need insulin. will start levemir 5 units HS counseled on risks assoc with uncontrolled DM which result in early blindness, heart disease, kidney failure, peripheral neuropathy and infections. instructed to document log of sugars and bring to next PMD appt to further titrate insulin. BGM, iss. dietary eval. injection teaching by RN 3. elevated BP- resolved. 4. Morbid obesity- BMI 41.6. bariatric referral as outpatient. lifestyle modifications 5. DVT ppx- lovenox
[2017-08-13] MEDS ORDERED: MAGNESIUM OXIDE 400 MG TABLET (FP) PO ONE (14:05)
--- NOTE | 2017-08-13 14:12 | PN ---
Progress Note (short form) - Note Progress Note: surgery pt seen and examined. full consult dictated. 36 f admitted with 3 days epigastric pain and elevated lipase, amylase, and alk phos. u/s and MRI show 11mm cbd and mri shows tiny gallstones. On exam abd is soft, nt. Plan- pt needs w/u of dilated cbd. Would not entertain cholecystectomy until etiology known. May need ercp and brushings vs endoscopic u/s.
--- NOTE | 2017-08-13 14:58 | CONS ---
DATE OF CONSULTATION: 08/13/2017 REASON FOR CONSULTATION: Pancreatitis, abnormal common bile duct, gallstones. REQUESTING PHYSICIAN: Hospitalist. BRIEF HISTORY: This is a 36-year-old female with a history of morbid obesity, hyperlipidemia and hypertension, who is currently not on medications, who presents to [facility] complaining of a 3-day history of epigastric pain. In the emergency room, she was noted to have an elevated lipase of 1419, an amylase of 133, and an alkaline phosphatase of 140. She had an ultrasound done of her gallbladder, which showed a dilated common bile duct of 11 mm without gallstones. She also had a CT scan of her abdomen and pelvis, which showed pancreatitis without necrosis. The bile duct was again noted to be dilated, as well as the pancreatic duct. She also went for an MRCP, which did show small gallstones, but also showed a dilated common bile duct up to 1 cm in size. The pancreatic duct appeared to be otherwise unremarkable. The patient currently feels better. A request is made for a general surgical evaluation. PAST SURGICAL HISTORY: Nil. SOCIAL HISTORY: Positive for tobacco. PAST MEDICAL HISTORY: As in the HPI. FAMILY HISTORY: Noncontributory. MEDICATIONS: Home medications are nil. ALLERGIES: She has no known drug allergies. REVIEW OF SYSTEMS: General: Denies fatigue or malaise. Cardiac: Denies chest pain or palpitations. Respiratory: Denies shortness of breath or wheeze. Gastrointestinal: As stated in the HPI. Denies diarrhea. Denies blood in her stool. Denies recent weight loss. Genitourinary: Denies dysuria. Musculoskeletal: Denies joint pain or joint swelling. Psychiatric: Denies depression or hearing voices. PHYSICAL EXAMINATION: General: This is a morbidly obese 36-year-old female in no distress. Vital signs: She is afebrile. HEENT: Her head is normocephalic. Sclerae are anicteric. Neck: Supple. Chest: Clear. Abdomen: Soft. Nontender. She has no surgical scars. Extremities: Her extremities have no edema. LABORATORY STUDIES: As stated in the HPI. Her white blood cell count is normal. Her alkaline phosphatase remains elevated today at 125. ASSESSMENT: This is a 36-year-old female with improved epigastric pain and computerized axial tomography evidence of pancreatitis, with computerized axial tomography, magnetic resonance imaging and ultrasound showing a dilated common bile duct, and magnetic resonance imaging also showing small gallstones. At this point it is unclear the etiology of her pancreatitis or her dilated common bile duct. It is possible this could be from choledocholithiasis. However, this would need to be confirmed. I would not move in the direction of cholecystectomy until the etiology of her dilated common bile duct and pancreatitis has been determined. Differential would included a choledochal cyst versus a neoplasm. The patient may benefit from endoscopic retrograde cholangiopancreatography with brushings versus endoscopic ultrasound. At this point I would not move in the direction of cholecystectomy until these more important issues are determined. She clearly has no evidence of acute cholecystitis. DO MARCIA BLOCK/[id number]
[2017-08-13] MEDS: INSULIN DETEMIR 100 UNITS/ML MDV SQ SCH (22:03)
[2017-08-14] MEDS: INSULIN SLIDING SCALE (NOVOLOG) 1 VIAL SQ SCH ×2 (06:41→12:08)
[2017-08-14 08:21] LABS: MCH 28.9 pg (25.7-33.7); MCHC 32.6 g/dl (32.0-36.0); MEAN CELL VOLUME 88.7 fl (80-96); MEAN PLT VOLUME 10.3 fl (7.5-11.1); PLATELET COUNT 249 K/MM3 (134-434); RDW 13.8 % (11.6-15.6); WHITE BLOOD COUNT 5.4 K/mm3 (4.0-10.0)
[2017-08-14 08:35] LABS: ANION GAP 8 (8-16); BILIRUBIN,TOTAL 0.3 mg/dL (0.2-1.0); CALCIUM 8.7 mg/dL (8.5-10.1); CO2 24 mmol/L (21-32); CREATININE 0.6 mg/dL (0.55-1.02); GLUCOSE,RANDOM 233 mg/dL (74-106); SGOT/AST 17 U/L (15-37); SGPT/ALT 30 U/L (12-78); TOT PROT 6.5 g/dl (6.4-8.2)
[2017-08-14 08:36] LABS: ALK PHOS 125 U/L (45-117)
[2017-08-14 10:01] VITALS: BP 136/86; PULSE 66; TEMP 98
[2017-08-14] MEDS: ENOXAPARIN NA (PORCINE) 40 MG/0.4 ML DISP.SYRIN SQ SCH (11:14)
[2017-08-14] MEDS ORDERED: INSULIN (NOVOLOG) ASPART 100 UNITS/ML 10ML VIAL ONE (12:00)
--- NOTE | 2017-08-14 12:42 | PN ---
Teaching Attending Note Name of Resident: Fredy Sin ATTENDING PHYSICIAN STATEMENT I saw and evaluated the patient. I reviewed the resident's note and discussed the case with the resident. I agree with the resident's findings and plan as documented. SUBJECTIVE:asymptomatic. tolerating diet without difficult. denies Cp, SOB, fever, chills, N/V/C/D OBJECTIVE: Last Vital Signs Temp Pulse Resp BP Pulse Ox 98 F 66 20 136/86 100 08/14/17 09:00 08/14/17 09:00 08/14/17 09:00 08/14/17 09:00 08/14/17 09:00 General NAD Abdomen soft NT/ND neg chandler sign no rebound/guarding obese ASSESSMENT AND PLAN: 36yo F wtih PMH obesity presented to the ER with abdominal pain x3 days 1. Acute pancreatitis- concern for gallstone induced. U/s showing dilated CBD 11mm. MRCP done showing no acute cholecysitits or choledocholithasis. mild fusiform dilation of CHD and upper noraml of CBD distal to insertion iwth no intrahepatic biliary dilation. likely within normal limits vs choledocholithasis cyst type 1. also is seen atrophy of the pancreatic neck with minimal dilation of the pancreatic duct in the tail with no abnormality. in the setting of not experiencing biliary colic on this presentation or the past and with normal bilirubin do not believe any further workup is required at this time. tolerating regular diet. will need GI follow up with repeat MRI with and without contrast to exclude occult neoplasm. 2. New onset DM- A1c 11.3.improved. on levemir 5 units HS counseled on risks assoc with uncontrolled DM which result in early blindness, heart disease, kidney failure, peripheral neuropathy and infections. instructed to document log of sugars and bring to next PMD appt to further titrate insulin. BGM, iss. dietary eval. injection teaching by RN 3. elevated BP- resolved. 4. Morbid obesity- BMI 41.6. bariatric referral as outpatient. lifestyle modifications 5. DVT ppx- lovenox 6. d/c home. stressed importance of medication compliance and follow up
--- NOTE | 2017-08-14 13:10 | DS ---
Physical Exam: SUBJECTIVE: Patient seen and examined at bedside. Patient denies any acute complaints. Tolerating solid foods. OBJECTIVE: Vital Signs Period Temp Pulse Resp BP Sys/[place] Pulse Ox Last 24 Hr 97.6 F-98.6 F 66-77 18-20 129-139/86-90 100-100 PHYSICAL EXAM GENERAL: The patient is awake, alert, and fully oriented, in no acute distress. HEAD: Normal with no signs of trauma. EYES: PERRL, extraocular movements intact, sclera anicteric, conjunctiva clear. No ptosis. ENT: Ears normal, nares patent, oropharynx clear without exudates, moist mucous membranes. NECK: Trachea midline, full range of motion, supple. LUNGS: Breath sounds equal, clear to auscultation bilaterally, no wheezes, no crackles, no accessory muscle use. HEART: Regular rate and rhythm, S1, S2 without murmur, rub or gallop. ABDOMEN: Soft, obese, nontender, nondistended, normoactive bowel sounds, no guarding, no rebound, no hepatosplenomegaly, no masses. EXTREMITIES: 2+ pulses, warm, well-perfused, no edema. NEUROLOGICAL: Cranial nerves II through XII grossly intact. Normal speech, gait not observed. PSYCH: Normal mood, normal affect. SKIN: Warm, dry, normal turgor, no rashes or lesions noted LABS Laboratory Results - last 24 hr 08/13/17 08/13/17 08/13/17 06:10 16:57 22:00 WBC RBC Hgb Hct MCV MCH MCHC RDW Plt Count MPV Sodium 135 L Potassium 4.5 Chloride 102 Carbon Dioxide 24 Anion Gap 9 BUN 8 Creatinine 0.6 D Creat Clearance w eGFR > 60 POC Glucometer 201 241 Random Glucose 194 H Calcium 8.8 Phosphorus 3.4 Magnesium 1.6 L Total Bilirubin 0.6 D AST 15 D ALT 23 Alkaline Phosphatase 125 H Total Protein 6.5 Albumin 2.8 L 08/14/17 08/14/17 08/14/17 06:39 07:00 07:00 WBC 5.4 RBC 5.12 Hgb 14.8 Hct 45.4 H MCV 88.7 MCH 28.9 MCHC 32.6 RDW 13.8 Plt Count 249 MPV 10.3 Sodium 134 L Potassium 4.5 Chloride 102 Carbon Dioxide 24 Anion Gap 8 BUN 8 Creatinine 0.6 Creat Clearance w eGFR > 60 POC Glucometer 228 Random Glucose 233 H D Calcium 8.7 Phosphorus Magnesium Total Bilirubin 0.3 D AST 17 ALT 30 D Alkaline Phosphatase 125 H Total Protein 6.5 Albumin 3.0 L 08/14/17 11:13 WBC RBC Hgb Hct MCV MCH MCHC RDW Plt Count MPV Sodium Potassium Chloride Carbon Dioxide Anion Gap BUN Creatinine Creat Clearance w eGFR POC Glucometer 255 Random Glucose Calcium Phosphorus Magnesium Total Bilirubin AST ALT Alkaline Phosphatase Total Protein Albumin HOSPITAL COURSE: Date of Admission:08/12/17 This is a 36 year old female with a past medical history significant for morbid obesity who presented for a 3 day history of epigastric abdominal pain that radiateed to her sides. Patient was found to have an elevated lipase and a CT suggestive of mild acute pancreatitis. Patient was started on fluids and kept NPO. On her labs, patient was discovered to have diabetes mellitus through continually high serum glucose and an elevated hemoglobin A1C. Patient was then started on levemir and sliding scale insulin to treat her diabetes in the hospital. An ultrasound abdomen was performed to look for cholecystitis and gallstones as a cause for patient's pancreatitis. The ultrasound revealed no overt gallstones or cholecystitis, but did show a dilated common bile duct. Patient's clinical status had improved and she became asymptomatic. An MRCP was then performed that confirmed a dilated common hepatic duct without stones or cholecystitis. After the MRCP, patient was started on clear liquid diet, which patient tolerated without issue. Patient was started on solid foods later, which she tolerated as well. Patient was discharged home on 08/14/17 with instructions to schedule an appointment with a channel program manager and a surgeon to follow up on her pancreatitis, and also to make an appointment with her primary care physician to discuss management of her newly diagnosed diabetes. Patient was sent home with information about diabetes and how to properly administer medications and check her blood sugars using a glucometer. Date of Discharge: 08/14/17 Minutes to complete discharge: 30 Discharge Summary Reason For Visit: PANCREATITIS Current Active Problems Choledochal cyst (Chronic) Morbid obesity (Chronic) Smoker (Chronic) Condition: Stable - Instructions Diet, Activity, Other Instructions: You were admitted to [facility] for the treatment of acute pancreatitis and diabetes mellitus. Follow a diabetic diet as instructed by the tram operator. Medical Recommendations: 1. Take Levemir 5 Units once daily every morning. Make sure to eat meals recommended for a diabetic diet. 2. Measure your blood sugar with the glucometer before each meal and before bed. Document your readings and how much insulin you inject with and bring this to your doctors appointment early next week. Your goal sugars should be between 70-125. However do not look to achieve this in the fist week 3. Take additional insulin on a sliding scale based on your blood sugars: Blood Sugar Dose 101-150 0 151-200 2 201-250 4 251-300 6 301-350 8 351-400 10 >400 Come to the Emergency Room 4. If you experience further, prolonged abdominal pain, please return to the emergency room for evaluation. Further Recommendations: Make an appointment with the channel program manager, Dr. Vázquez, within 1 week of discharge from the hospital. You will need a repeat MRI of your abdomen in 6 months. Make an appointment with the surgeon, Dr. Goodwin, for evaluation of bariatric surgery. Make an appointment with your primary care physician within 1 week of discharge from the hospital. If you don't have a primary care physician, you can follow up with me at: Dr. Fredy Sin, D.O. [address] [place] [address] Referrals: Alex Goodwin MD [Staff Physician] - 1 Week (Bariatric surgery referral) Modesto Vázquez MD [Staff Physician] - 1 Week (possible choledochal cyst, needs follow up MRI w/ contrast every 6 months) Gregory Hdez MD [Primary Care Provider] - 1 Week Disposition: HOME - Home Medications Comprehensive Discharge Medication List: Ambulatory Orders Insulin (Levemir) [Levemir Vial] 5 units SQ HS #100 ml 08/13/17 Insulin Sliding Scale [Novolog Vial Sliding Scale -] See Protocol SQ ACHS #100 units 08/13/17 Lancets/Blood Glucose Strips [Fora [id number] [facility]] 1 each ACHS # 100 combo..pkg 08/13/17 Miscellaneous Medical Supply [Glucometer Device] 1 each SQ ASDIR #1 kit Syringe and Needle,Insulin,1Ml [Insulin Syringe] 1 each PRN PRN #100 disp.syrin 08/14/17 This patient is new to me today: No Emergency Visit: No Critical Care patient: No - Discharge Referral Referred to [facility] No
== END 2017-08-14 13:00 | disposition home or self-care (01) | DRG 282 ==
LOC: JER 22:15 → JERBED 08-12 03:35 → J6S 08-12 04:29
PROVIDERS: ADMIT Internal Medicine; ATTEND Internal Medicine
DX: K85.90 Acute pancreatitis without necrosis or infection, unspecified (principal); R10.9 Unspecified abdominal pain; E66.01 Morbid (severe) obesity due to excess calories; Z68.41 Body mass index [BMI] 40.0-44.9, adult; E78.5 Hyperlipidemia, unspecified; F17.210 Nicotine dependence, cigarettes, uncomplicated; E11.65 Type 2 diabetes mellitus with hyperglycemia; I10 Essential (primary) hypertension
CPT/HCPCS: 36415; 71010-TC; 74177-TC; 74181-TC; 76700-TC; 80053; 80061; 81003; 81015; 82150; 83036; 83615; 83690; 83721; 83735; 84100; 84703; 85025; 85027; 93005; 93010; 99284-25

== ENCOUNTER 2018-02-01 21:23 | Emergency (ER) | payer SELFPAY ==
[2018-02-01 21:40] VITALS: BP 149/82; PULSE 75; TEMP 98.4; BMI 41.3
[2018-02-02] MEDS ORDERED: FAMOTIDINE IV 20 MG/12 ML VIAL IVPUSH ONE (00:11)
[2018-02-02] MEDS ORDERED: ACETAMINOPHEN 1000 MG/100 ML VIAL (NON FORMULARY) IVPB ONE (00:12)
[2018-02-02] MEDS ORDERED: morphine CARPU-JECT 2 MG/1 ML DISP.SYRIN IVPUSH ONE (00:12)
[2018-02-02] MEDS ORDERED: morphine SULFATE 4 MG/ML VIAL ONE (00:32)
[2018-02-02] MEDS ORDERED: FAMOTIDINE 20 MG/50 ML IVPB 20 MG/50 ML MG IVPB ONE (00:33)
[2018-02-02] MEDS ORDERED: ACETAMINOPHEN INJECTION 100 ML IVPB ONE (00:33)
--- NOTE | 2018-02-02 00:35 | PDOC ---
History of Present Illness - General Chief Complaint: Pain Stated Complaint: STOMACH PAIN Time Seen by Provider: 02/01/18 23:11 History Source: Patient Exam Limitations: No Limitations - History of Present Illness Initial Comments: 02/02/18 00:35 Patient is a 37-year-old female recently diagnosed pancreatitis, and diabetes, here with complaint of right upper quadrant pain that radiates to the back since yesterday. States after her pain is 10/10 sharp continuous with no aggravating or alleviating factors. States she thought it was gas has been taking anti-gas medication, Tylenol with no relief of symptoms. She had a prior episode of similar pain when she was diagnosed with pancreatitis 2 months ago. She was also diagnosed with diabetes at that time and has not had any follow-up since. She drinks occasionally but has not had anything to drink yesterday or today. She denies nausea, vomiting, fever, chills, diarrhea. PMHX: as above PsocHx: (+) cig 1/2 PPD, (+)occ etoh ALL: NKDA GENERAL/CONSTITUTIONAL: [No fever or chills. No weakness. No weight change.] HEAD, EYES, EARS, NOSE AND THROAT: [No change in vision. No ear pain or discharge. No sore throat.] CARDIOVASCULAR: [No chest pain or shortness of breath.] RESPIRATORY: [No cough, wheezing, or hemoptysis.] GASTROINTESTINAL: [(+) abdominal pain, No nausea, vomiting, diarrhea or constipation. No rectal bleeding.] GENITOURINARY: [No dysuria, frequency, or change in urination.] MUSCULOSKELETAL: [No joint or muscle swelling or pain. No neck or back pain.] SKIN AND BREASTS: [No rash or easy bruising.] NEUROLOGIC: [No headache, vertigo, loss of consciousness, or loss of sensation.] PSYCHIATRIC: [No depression or anxiety.] ENDOCRINE: [No increased thirst. No abnormal weight change.] HEMATOLOGIC/LYMPHATIC: [No anemia, easy bleeding, or history of blood clots.] ALLERGIC/IMMUNOLOGIC: [No hives or skin allergy. No latex allergy.] GENERAL: [The patient is awake, alert, and fully oriented, in acute distress.] HEAD: [Normal with no signs of trauma.] EYES: [Pupils equal, round and reactive to light, extraocular movements intact, sclera anicteric, conjunctiva clear.] ENT: [Ears normal, nares patent, oropharynx clear without exudates. Moist mucous membranes.] NECK: [Normal range of motion, supple without lymphadenopathy, JVD, or masses.] LUNGS: [Breath sounds equal, clear to auscultation bilaterally. No wheezes, and no crackles.] HEART: [Regular rate and rhythm, normal S1 and S2 without murmur, rub.] ABDOMEN: [Soft, (+) tenderness ruq, normoactive bowel sounds. No guarding, no rebound. No masses.] EXTREMITIES: [Normal range of motion, no edema. No clubbing or cyanosis. No cords, erythema, or tenderness.] NEUROLOGICAL: [Cranial nerves II through XII grossly intact. Normal speech, normal gait.] PSYCH: [Normal mood, normal affect.] SKIN: [Warm, Dry, normal turgor, no rashes or lesions noted.] Past History - Past Medical History Allergies/Adverse Reactions: Allergies Allergy/AdvReac Type Severity Reaction Status Date / Time No Known Allergies Allergy Verified 02/01/18 21:38 Home Medications: Ambulatory Orders NK [No Known Home Medication] 02/02/18 COPD: No Diabetes: Yes - Immunization History Td Vaccination: Yes Immunization Up to Date: Yes - Suicide/Smoking/Psychosocial Hx Smoking Status: Yes Smoking History: Never smoked Years of Tobacco Use: 5 Have you smoked in the past 12 months: Yes Number of Cigarettes Smoked Daily: 10 Cigars Per Day: 0 Information on smoking cessation initiated: No Hx Alcohol Use: No Drug/Substance Use Hx: No Substance Use Type: None *Physical Exam - Vital Signs Last Vital Signs Temp Pulse Resp BP Pulse Ox 98.4 F 75 18 149/82 99 02/01/18 21:39 02/01/18 21:39 02/01/18 21:39 02/01/18 21:39 02/01/18 21:39 ED Treatment Course - LABORATORY CBC & Chemistry Diagram: 02/02/18 02:00 02/02/18 02:00 Medical Decision Making - Medical Decision Making 02/02/18 00:35 Patient is a 37-year-old female recently diagnosed pancreatitis, and diabetes, here with complaint of right upper quadrant pain that radiates to the back since yesterday. will r/o pancreatitis, cholecystis. labs, pain meds 02/02/18 01:44 Patient Full Name: RAMIRO NIXON Patient Accession No: [id number] Patient : 1980 Reason for Exam: ruq abd pain Referring Physician: Patient Name: HUSSAIN RUBIO THIS IS A PRELIMINARY REPORT FROM [facility]PER[facility] DATE OF SERVICE: 2018-02-02 00:24:44 IMAGES: 48 EXAM: Ultrasound abdomen limited, right upper quadrant and limited abdominal duplex HISTORY: Right upper quadrant pain COMPARISON: None. FINDINGS: Right upper quadrant ultrasound:The liver is fatty, without mass or biliary duct dilation. The gallbladder contains stones without secondary findings of cholecystitis. The CBD is borderline dilated and measures7 millimeters in diameter. Right kidney measures 13.0centimeters in length and is unremarkable. The visualized aorta and IVC are normal. Pancreas is partially obscured, but appears normal. Abdominal duplex: The main portal vein demonstrates normal hepatopedal flow. There is normal pulsatility of the aorta and IVC. IMPRESSION: Gallstones without secondary signs of cholecystitis. Borderline dilated CBD. A distal CBD stone is not excluded. Fatty liver. THIS DOCUMENT HAS BEEN ELECTRONICALLY SIGNED Olu Robles MD 02/02/2018 01:34 EST M.D. Please call Imaging Instrument Room Technician [phone] ([phone]) with questions. INTERPRETING RADIOLOGIST: Rob Robles MD Electronically Signed: February 02, 2018 01:37AM ED Patient improved abdomen soft and nontender at discharge. The names and address of all the consult was provided to the patient so she could follow up this week. I discussed the physical exam findings, ancillary test results and final diagnoses with the patient. I answered all of the patient's questions. The patient was satisfied with the care received and felt comfortable with the discharge plan and treatment plan. The Patient agrees to follow up with the primary care physician within 24-72 hours. *DC/Admit/Observation/Transfer Diagnosis at time of Disposition: Abdominal pain Qualifiers: Abdominal location: right upper quadrant Qualified Code(s): R10.11 - Right upper quadrant pain - Discharge Dispostion Disposition: HOME Condition at time of disposition: Stable - Referrals Referrals: Modesto Vázquez MD [Staff Physician] - Alex Goodwin MD [Staff Physician] - Gregory Hdez MD [Non Staff, Medical] - - Patient Instructions Printed Discharge Instructions: DI for Abdominal Pain-Adult Additional Instructions: Your Discharge Instructions: You must call primary care physician within 24 hours to arrange follow-up. Return to the Emergency Department with any new, persistent or worsening symptoms, for fever, chills, SOB, dizziness or any other concerning changes that may occur. He must follow-up with the consultants you were referred to on your last admission and discharge from the hospital. You must see the PMD for better blood sugar control and for medication. - Post Discharge Activity
[2018-02-02 02:11] LABS: BASO % 0.6 % (0-2.0); EOS % 1.8 % (0-4.5); HEMOGLOBIN 14.8 GM/dL (10.7-15.3); LYMPH % 36.4 % (8-40); MCH 30.7 pg (25.7-33.7); MCHC 34.4 g/dl (32.0-36.0); MEAN CELL VOLUME 89.1 fl (80-96); MEAN PLT VOLUME 10.5 fl (7.5-11.1); NEUT % 54.2 % (42.8-82.8); PLATELET COUNT 208 K/MM3 (134-434); RBC 4.82 M/mm3 (3.60-5.2)
[2018-02-02 02:47] LABS: ALBUMIN 3.2 g/dl (3.4-5.0); ALK PHOS 129 U/L (45-117); ANION GAP 9 (8-16); BILIRUBIN,TOTAL 0.3 mg/dL (0.2-1.0); BLOOD UREA NITROGEN 12 mg/dL (7-18); CALCIUM 8.9 mg/dL (8.5-10.1); CHLORIDE 103 mmol/L (98-107); CO2 26 mmol/L (21-32); CREATININE 0.6 mg/dL (0.55-1.02); GLUCOSE,RANDOM 265 mg/dL (74-106); POTASSIUM 4.6 mmol/L (3.5-5.1); SGOT/AST 17 U/L (15-37); SGPT/ALT 25 U/L (12-78); SODIUM 138 mmol/L (136-145); TOT PROT 6.7 g/dl (6.4-8.2)
[2018-02-02 02:55] LABS: LIPASE 171 U/L (73-393)
== END 2018-02-02 05:58 | disposition home or self-care (01) ==
LOC: JER 21:23
PROC: 3E033GC Introduction of Other Therapeutic Substance into Peripheral Vein, Percutaneous Approach (ICD-10-PCS; principal; 2018-02-01)
PROC: 3E033NZ Introduction of Analgesics, Hypnotics, Sedatives into Peripheral Vein, Percutaneous Approach (ICD-10-PCS; 2018-02-01)
PROC: 3E033NZ Introduction of Analgesics, Hypnotics, Sedatives into Peripheral Vein, Percutaneous Approach (ICD-10-PCS; 2018-02-01)
DX: R10.11 Right upper quadrant pain (principal); K86.1 Other chronic pancreatitis; K80.20 Calculus of gallbladder without cholecystitis without obstruction; K76.0 Fatty (change of) liver, not elsewhere classified; E11.9 Type 2 diabetes mellitus without complications; F17.210 Nicotine dependence, cigarettes, uncomplicated
CPT/HCPCS: 36415; 76705-TC; 80053; 83690; 84702; 85025; 99284-25; J0131

== ENCOUNTER 2018-09-24 19:56 | Emergency (ER) | payer OTHER ==
[2018-09-24 20:14] VITALS: BP 139/82; PULSE 87; TEMP 98.1; BMI 41.3
--- NOTE | 2018-09-24 22:03 | PDOC ---
History of Present Illness - General Chief Complaint: Pain Stated Complaint: LEFT FOOT PAIN Time Seen by Provider: 09/24/18 21:52 History Source: Patient Exam Limitations: No Limitations - History of Present Illness Initial Comments: 09/24/18 22:33 The patient is a 38 year old female with h/o uncontrolled DM presenting with left foot pain for the past 4 days. Patient states she woke up 4 days ago and felt sudden left plantar pain after stepping on it. The patient was asymptomatic the day prior. 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 No recent traumas or falls. Patient took Tylenol with no relief. The patient denies chest pain, shortness of breath, headache and dizziness. Denies chills, nausea, vomit, diarrhea and constipation. Denies dysuria, frequency, urgency and hematuria. Allergies: NKA Past surgical history: None reported Social history: No reported alcohol, drug or cigarette use. Past History - Past Medical History Allergies/Adverse Reactions: Allergies Allergy/AdvReac Type Severity Reaction Status Date / Time No Known Allergies Allergy Verified 09/24/18 20:11 Home Medications: Ambulatory Orders NK [No Known Home Medication] 02/02/18 COPD: No Diabetes: Yes - Immunization History Td Vaccination: Yes Immunization Up to Date: Yes - Suicide/Smoking/Psychosocial Hx Smoking Status: Yes Smoking History: Current every day smoker Years of Tobacco Use: 5 Have you smoked in the past 12 months: Yes Number of Cigarettes Smoked Daily: 6 Cigars Per Day: 0 Information on smoking cessation initiated: No Hx Alcohol Use: No Drug/Substance Use Hx: No Substance Use Type: None Review of Systems - Review of Systems Able to Perform ROS?: Yes Comments:: 09/24/18 22:33 Constitutional - no reported Fever, Chills, Musculskelatal - +L foot pain no reported back pain, joint swelling skin - no reported bruising, erythema, rash neurological: no reported numbness, focal weakness, tingling, *Physical Exam - Vital Signs Last Vital Signs Temp Pulse Resp BP Pulse Ox 98.1 F 87 18 139/82 99 09/24/18 20:11 09/24/18 20:11 09/24/18 20:11 09/24/18 20:11 09/24/18 20:11 - Physical Exam Comments: 09/24/18 22:21 GENERAL: The patient is awake, alert, and fully oriented, Nontoxic - in no acute distress. EXTREMITIES: No significant edema, mild tenderness to base of L heel, no massess , erythema, induration fluctuance, discharge Moderate Sedation - Procedure Monitoring Vital Signs: Procedure Monitoring Vital Signs Temperature 98.1 F 09/24/18 20:11 Pulse Rate 87 09/24/18 20:11 Respiratory Rate 18 09/24/18 20:11 Blood Pressure 139/82 09/24/18 20:11 O2 Sat by Pulse Oximetry (%) 99 09/24/18 20:11 Medical Decision Making - Medical Decision Making 09/24/18 22:02 38y F pmhx of dm presents with atraumatic L foot pain x 4 days onset when she woke up and stpped on it worse on the plantar aspect of L foot no improvement with tylenol no neuro complaints 09/24/18 22:22 suspect plantar faciatis will treat with NSADIS and supportive care at home I discussed the physical exam findings, ancillary test results and final diagnoses with the patient. I answered all of the patient's questions. The patient was satisfied with the care received and felt comfortable with the discharge plan and treatment plan. The patient will call their primary care physician within 24 hours to arrange follow-up and will return to the Emergency Department with any new, persistent or worsening symptoms. *DC/Admit/Observation/Transfer Diagnosis at time of Disposition: Plantar fasciitis of left foot - Discharge Dispostion Disposition: HOME Condition at time of disposition: Improved Decision to Admit order: No - Referrals Referrals: [facility] [place] [Provider Group] - Patient Instructions Printed Discharge Instructions: DI for Plantar Fasciitis Additional Instructions: Return to the emergency department immediately with ANY new, persistent or worsening symptoms. Take motrin 400mg every 6 hrs for pain for 1 week Rest. Do stretching excercises as shown. Avoid walking around barefoot or using flat shoes. Use silicon heel shoe inserts/arch supports. You MUST call and follow up with your doctor in 3-4 days for further evaluation of your symptoms. Results were discussed with you. Please make sure your doctor reviews the results of your emergency evaluation. Print Language: POLISH - Post Discharge Activity
[2018-09-24] MEDS ORDERED: IBUPROFEN 400 MG TABLET (FP) PO ONE ×2 (22:05→22:07)
== END 2018-09-24 22:38 | disposition home or self-care (01) ==
LOC: JERFT 19:56 → JER 19:56
DX: M72.2 Plantar fascial fibromatosis (principal); E11.65 Type 2 diabetes mellitus with hyperglycemia
CPT/HCPCS: 99282-25